=== PATIENT | female | born 1995 | race Caucasian/White ===

== ENCOUNTER 2018-02-18 20:05 | Emergency (ER) | payer SELFPAY ==
[2018-02-19] MEDS ORDERED: TYLENOL PO ONE (01:29)
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
[2018-02-19 05:12] VITALS: BP 130/80
== END 2018-02-19 02:10 | disposition home or self-care (01) ==
LOC: ED 20:05
DX: S00.81XA Abrasion of other part of head, initial encounter (principal); Y04.0XXA Assault by unarmed brawl or fight, initial encounter; Y93.89 Activity, other specified; Y92.098 Other place in other non-institutional residence as the place of occurrence of the external cause; Y99.8 Other external cause status
CPT/HCPCS: 99283